=== PATIENT | male | born 1995 | race American Indian/Alaskan Native ===

== ENCOUNTER 2019-12-31 19:46 | Emergency (ER) | payer SELFPAY ==
[2019-12-31 20:33] VITALS: BP 94/42
== END 2020-01-01 01:40 | disposition left against medical advice (07) ==
LOC: ED 19:46
DX: R51 Headache (principal); R10.9 Unspecified abdominal pain; Z53.21 Procedure and treatment not carried out due to patient leaving prior to being seen by health care provider